=== PATIENT | female | born 1960 | race Caucasian/White ===

== ENCOUNTER 2023-11-30 07:34 | Inpatient (IN) | payer MEDICARE, BC ==
[~2023-11-30] VITALS: Ht 162.6 cm; Wt 78.7 kg
[2023-11-30] VITALS (10 sets, daily range): BP systolic 128–147; BP diastolic 63–85; TEMP 97.3–98.2; O2SAT 95–100
[2023-11-30] MEDS ORDERED: FAMO20TA8 PO (08:18)
[2023-11-30] MEDS ORDERED: FURO-145 PO (08:18)
[2023-11-30] MEDS ORDERED: GEMTESA PO (08:18)
[2023-11-30] MEDS ORDERED: ROSU5TAB13 PO (08:18)
[2023-11-30] MEDS ORDERED: FLUC150T PO (08:18)
[2023-11-30] MEDS ORDERED: UBID100C13 PO (08:18)
[2023-11-30] MEDS ORDERED: OLME40TA18 PO (08:18)
[2023-11-30] MEDS ORDERED: NEBI20TA2 PO (08:18)
[2023-11-30] MEDS ORDERED: ROCURONIUM BROMIDE 50 MG/5 ML ONE (09:26)
[2023-11-30] MEDS ORDERED: dexaMETHasone SOD PHOSPHATE 2 ML ONE (09:30)
[2023-11-30] MEDS ORDERED: VANCOMYCIN 1 GM VIAL ONE (09:30)
[2023-11-30] MEDS ORDERED: LIDOCAINE 2%-EPI 1:100,000 30 ML VIAL ONE (09:30)
[2023-11-30] MEDS ORDERED: SEVOFLURANE 250 ML BOTTLE IH ONE (10:02)
[2023-11-30] MEDS ORDERED: HYDROMORPHONE 1 MG/1 ML DISP.SYRIN IV PRN (12:00)
[2023-11-30] MEDS ORDERED: IV NS 0.9% 1,000 ML IV PRN (12:00)
[2023-11-30] MEDS ORDERED: ONDANSETRON HCL/PF 4 MG/2 ML VIAL IV PRN (12:00)
[2023-11-30] MEDS ORDERED: FUROSEMIDE 20 MG TABLET PO PRN (13:00)
[2023-11-30] MEDS ORDERED: MAG HYDROX/AL HYDROX/SIMETH 30 ML UDC PO PRN (13:00)
[2023-11-30] MEDS ORDERED: MAGNESIUM HYDROXIDE 30 ML UDC PO PRN (13:00)
[2023-11-30] MEDS ORDERED: Z GUARD REMEDY 4 OZ OINT TP PRN (13:00)
[2023-11-30] MEDS ORDERED: ACETAMINOPHEN 325 MG TABLET PO PRN (13:00)
[2023-11-30] MEDS ORDERED: ZOLPIDEM TARTRATE 5 MG TABLET PO PRN (13:00)
[2023-11-30] MEDS ORDERED: HYDROCODONE/APAP 10/325MG TABLET PO PRN (13:00)
[2023-11-30] MEDS ORDERED: ONDANSETRON HCL/PF 4 MG/2 ML VIAL IVP PRN (13:00)
[2023-11-30] MEDS: ACETAMINOPHEN 325 MG TABLET PO PRN (13:41)
[2023-11-30] MEDS ORDERED: LOSARTAN POTASSIUM 50 MG TABLET PO SCH (18:00)
[2023-11-30] MEDS ORDERED: ATORVASTATIN 10 MG TABLET PO SCH (18:00)
[2023-11-30] MEDS: VANCOMYCIN 1 GM in IV D5W 250ml IV SCH (20:12)
[2023-11-30] MEDS: METOPROLOL TARTRATE 50 MG TABLET PO SCH (20:13)
[2023-12-01] MEDS ORDERED: LIDOCAINE VISCOUS 2% UD 15 ML UDC MM SCH (06:40)
[2023-12-01] MEDS ORDERED: MENTHOL/CETYLPYRD (CEPACOL) 1 LOZ LOZENGE PO PRN (06:45)
[2023-12-01 07:07] LABS: HEMATOCRIT 34 % (33-45); HEMOGLOBIN 11.4 g/dL (11.5-14.8); LYMPHOCYTES # (AUTO) 1.5 K/uL (0.8-4.8); LYMPHOCYTES % (AUTO) 11.3 % (20.0-44.0); MEAN CORPUSCULAR HEMOGLOBIN 27 PG (26.0-33.0); MEAN CORPUSCULAR HGB CONC 33 g/dl (31.0-36.0); MEAN CORPUSCULAR VOLUME 80 fL (82-100); MONOCYTES # (AUTO) 0.5 K/uL (0.1-1.30); NEUTROPHILS # (AUTO) 11.4 K/uL (1.8-8.9); NEUTROPHILS % (AUTO) 84.7 % (43.0-81.0); PLATELET COUNT (AUTO) 323 K/uL (150-450); RED BLOOD CELL COUNT(AUTO) 4.29 MIL/uL (4.0-5.2); WHITE BLOOD COUNT (AUTO) 13.5 K/uL (4.3-11.0)
[2023-12-01 07:29] LABS: CALCIUM, SERUM 9.6 mg/dL (8.5-10.1); CREATININE 0.6 mg/dL (0.6-1.3); MAGNESIUM 2.1 mg/dL (1.8-2.4); PHOSPHORUS 3.3 mg/dL (2.5-4.9)
[2023-12-01 08:00] VITALS: BP 117/60; TEMP 98.4; O2SAT 98
[2023-12-01] MEDS: ACETAMINOPHEN 325 MG TABLET PO PRN (08:04)
[2023-12-01] MEDS: VANCOMYCIN 1 GM in IV D5W 250ml IV SCH (08:29)
[2023-12-01] MEDS: METOPROLOL TARTRATE 50 MG TABLET PO SCH ×2 (08:30→08:53)
[2023-12-01 08:53] VITALS: BP 117/60
[2023-12-01] MEDS ORDERED: FAMOTIDINE (20 MG) 20 MG TABLET PO SCH (09:00)
[2023-12-01] MEDS ORDERED: GEMTESA 75 MG PO SCH (09:00)
[2023-12-01] MEDS ORDERED: Medication Not On Formulary EA (Ubidecarenone (Coq-10) 200 MG) PO SCH (09:00)
[2023-12-01] MEDS ORDERED: ACET325T53 PO (12:06)
[2023-12-01] MEDS ORDERED: LIDO20SO13 MM (12:06)
[2023-12-01] MEDS ORDERED: AMOX-430 PO (12:06)
[2023-12-03] MEDS ORDERED: FLUCONAZOLE (100 MG) 100 MG TABLET PO SCH (09:00)
== END 2023-12-01 14:30 | disposition home or self-care (01) | DRG 908 ==
LOC: DS 07:34 → MED 07:35
PROVIDERS: ADMIT Nurse Practitioner Acute Care; ATTEND Nurse Practitioner Acute Care
PROC: 0NHT04Z Insertion of Internal Fixation Device into Right Mandible, Open Approach (ICD-10-PCS; principal; 2023-11-30)
PROC: 0NUR0JZ Supplement Maxilla with Synthetic Substitute, Open Approach (ICD-10-PCS; 2023-11-30)
PROC: 0NSR04Z Reposition Maxilla with Internal Fixation Device, Open Approach (ICD-10-PCS; 2023-11-30)
PROC: 0NBT0ZX Excision of Right Mandible, Open Approach, Diagnostic (ICD-10-PCS; 2023-11-30)
PROC: 0NBR0ZX Excision of Maxilla, Open Approach, Diagnostic (ICD-10-PCS; 2023-11-30)
DX: T86.831 Bone graft failure (principal); S02.40CK Maxillary fracture, right side, subsequent encounter for fracture with nonunion; S02.69XK Fracture of mandible of other specified site, subsequent encounter for fracture with nonunion; M27.2 Inflammatory conditions of jaws; I10 Essential (primary) hypertension; I25.10 Atherosclerotic heart disease of native coronary artery without angina pectoris; Z95.5 Presence of coronary angioplasty implant and graft; X58.XXXD Exposure to other specified factors, subsequent encounter; Y83.8 Other surgical procedures as the cause of abnormal reaction of the patient, or of later complication, without mention of misadventure at the time of the procedure; Y92.009 Unspecified place in unspecified non-institutional (private) residence as the place of occurrence of the external cause; D16.4 Benign neoplasm of bones of skull and face; Y83.2 Surgical operation with anastomosis, bypass or graft as the cause of abnormal reaction of the patient, or of later complication, without mention of misadventure at the time of the procedure
CPT/HCPCS: 36415; 80048-TC; 83735-TC; 84100-TC; 85025-TC; 87081-TC; 88305-TC; 88311-TC; A4223; C1713; G0378; J0461; J0690; J1100; J2704; J3370; J3490; J7030; J7060